=== PATIENT | female | born 1980 | race Caucasian/White ===

== ENCOUNTER → 2020-01-07 | Outpatient (CLI) | payer BC ==
--- NOTE | 2020-01-07 12:49 | Diagnostic Imaging Report ---
INDICATION: Routine screening. COMPARISON: No prior mammograms are available for comparison. This is a baseline study. TECHNIQUE: 2D and 3D bilateral screening mammography was performed with CAD. FINDINGS: Scattered fibroglandular densities are identified bilaterally. A small rounded density in the upper and slightly outer right breast at mid depth is noted. Additional views are recommended. The left breast is unremarkable. No malignant appearing microcalcifications are seen. The axillae are unremarkable. IMPRESSION: Right breast density. Additional views are recommended for further evaluation. ACR BI-RADS Category 0: Incomplete. (Needs additional imaging evaluation). Result letter will be mailed to the patient. Note: At least 10% of breast cancer is not imaged by mammography. Dictated by: Dictated on workstation # [id number]
== END ==
LOC: RAD 08:00
PROVIDERS: ATTEND Nurse Practitioner Family
DX: Z12.31 Encounter for screening mammogram for malignant neoplasm of breast (principal); N63.11 Unspecified lump in the right breast, upper outer quadrant; Z80.3 Family history of malignant neoplasm of breast
CPT/HCPCS: 77063; 77067

== ENCOUNTER → 2020-01-15 | Outpatient (CLI) | payer BC ==
--- NOTE | 2020-01-15 13:11 | Diagnostic Imaging Report ---
INDICATION: Right breast density. Patient presents for additional views. COMPARISON: Correlation is made with the recent screening mammogram from 01/07/2020. TECHNIQUE: Unilateral right 2D and 3D diagnostic mammography was performed with CAD. This includes spot compression CC and ML views as well as a conventional 90 degree lateral view. FINDINGS: Additional views show a persistent nodular density in the slightly outer right breast 5-6 cm from the nipple. No suspicious calcifications are seen. IMPRESSION: Persistent nodular density in the right breast, as described. Further evaluation with ultrasound is recommended and will be performed today. ACR BI-RADS Category 0: Incomplete. (Needs additional imaging evaluation). Result letter will be mailed to the patient. Note: At least 10% of breast cancer is not imaged by mammography. Dictated by: Dictated on workstation # [id number]
--- NOTE | 2020-01-15 14:33 | Diagnostic Imaging Report ---
INDICATION: Right breast nodule. COMPARISON: Correlation is made with the diagnostic mammogram from earlier this same day and the screening mammogram from 01/07/2020. FINDINGS: Sonographic interrogation of the outer right breast was performed. There is a simple cyst at the 9:30 location of the right breast approximately 3 cm from the nipple. This measures 5 mm x 2 mm x 4 mm. No internal vascularity is seen. This does correlate in size and location to the mammographic density. IMPRESSION: Simple cyst at the 9:30 location of the right breast accounting for the mammographic density. The patient may return to routine annual screening mammography. ACR BI-RADS Category 2: Benign findings. Dictated by: Dictated on workstation # [id number]
== END ==
LOC: RAD 12:16
PROVIDERS: ATTEND Nurse Practitioner Family
DX: N60.01 Solitary cyst of right breast (principal); N63.10 Unspecified lump in the right breast, unspecified quadrant
CPT/HCPCS: 76642; 77065; G0279

== ENCOUNTER → 2021-01-26 | Outpatient (CLI) | payer BC ==
--- NOTE | 2021-01-26 12:28 | Diagnostic Imaging Report ---
INDICATION: Routine screening. COMPARISON: 01/07/2020. TECHNIQUE: 2D and 3D bilateral screening mammography was performed with CAD. FINDINGS: Scattered fibroglandular densities are identified bilaterally. The previously noted circumscribed density in the upper and outer aspect of the right breast appears stable and was shown by ultrasound to represent a cyst. No new mass is identified. No malignant appearing microcalcifications are identified. The axillae are unremarkable. IMPRESSION: No mammographic features suspicious for malignancy are identified. ACR BI-RADS Category 2: Benign findings. Result letter will be mailed to the patient. Note: At least 10% of breast cancer is not imaged by mammography. Dictated by: Dictated on workstation # [id number]
== END ==
LOC: RAD 08:00
PROVIDERS: ATTEND Family Medicine
DX: Z12.31 Encounter for screening mammogram for malignant neoplasm of breast (principal)
CPT/HCPCS: 77063; 77067

== ENCOUNTER → 2022-01-28 | Outpatient (CLI) | payer BC ==
--- NOTE | 2022-01-28 11:33 | Diagnostic Imaging Report ---
Indication: Routine screening. Comparison is made with prior mammograms 01/26/2021 and 01/07/2020. 2-D and 3-D bilateral screening mammography was performed with CAD. Scattered fibroglandular densities are identified bilaterally. Circumscribed density upper outer right breast is similar to perhaps slightly larger and has been shown previously to represent a cyst. No new mass or malignant-appearing microcalcifications are seen. Axillae are unremarkable. IMPRESSION: BI-RADS Category 2. No mammographic features suspicious for malignancy are identified. ACR BI-RADS Category 2: Benign findings. Result letter will be mailed to the patient. Note: At least 10% of breast cancer is not imaged by mammography. Dictated by: Dictated on workstation # [id number]
== END ==
LOC: RAD 09:45
PROVIDERS: ATTEND Family Medicine
DX: Z12.31 Encounter for screening mammogram for malignant neoplasm of breast (principal)
CPT/HCPCS: 77063; 77067

== ENCOUNTER → 2023-02-20 | Outpatient (CLI) | payer BC ==
--- NOTE | 2023-02-20 11:15 | Diagnostic Imaging Report ---
INDICATION: Routine screening. COMPARISON: 01/28/2022 and 01/26/2021. TECHNIQUE: 2D and 3D bilateral screening mammography was performed with CAD. FINDINGS: Scattered fibroglandular densities are identified bilaterally. There is waxing and waning of circumscribed densities in the right breast, consistent with cysts. No spiculated mass or malignant-appearing microcalcifications are seen. The axillae are unremarkable. IMPRESSION: No mammographic features suspicious for malignancy are identified. ACR BI-RADS Category 2: Benign findings. Result letter will be mailed to the patient. Note: At least 10% of breast cancer is not imaged by mammography. Dictated by: Dictated on workstation # [id number]
== END ==
LOC: RAD 07:52
PROVIDERS: ATTEND Family Medicine
DX: Z12.31 Encounter for screening mammogram for malignant neoplasm of breast (principal); Z00.00 Encounter for general adult medical examination without abnormal findings
CPT/HCPCS: 77063; 77067